=== PATIENT | female | born 1940 | race Two or more races ===

== ENCOUNTER 2025-07-12 03:17 | Inpatient (IN) | payer OTHER, SELFPAY ==
[2025-07-11 18:33] VITALS: BP 143/77
[2025-07-11 18:35] VITALS: BP 143/77
[2025-07-11 18:58] LABS: Hematocrit 31.1 % (37.0-47.0); Hemoglobin 10.7 g/dL (12.0-16.0); Mean Corp Hgb Conc. 34.4 g/dL (33.0-37.0); Mean Corpuscular Volume 85.9 fL (81.0-99.0); Nucleated Red Blood Cells % 0 %; Platelet Count 205 10^3/uL (130-400); Red Cell Dist. Width 12.6 % (11.5-14.5)
--- NOTE | 2025-07-11 18:58 | ED.GENMED ---
ED Provider Triage
<Jose Manuel Kay MD, Resident - Last Filed: 07/12/25 02:06>
-
Patient seen by provider in Triage?: Seen in Triage
History of Present Illness
<Jose Manuel Kay MD, Resident - Last Filed: 07/12/25 02:06>
General
Chief Complaint: Chest Pain
Source: patient
Exam Limitations: none
Time Seen by Provider: 07/11/25 18:52
History of Present Illness
History of Present Illness:
84 y/o F who is here with daughter at bedside and presents for sudden sharp constant chest pain that has progressively improved since its onset an hour ago. Started with numbness in the right arm since the morning, which gradually declined until
her sudden presentation an hour ago. Associated with shortness of breath, dizziness, nausea, diaphoresis. She has a history of multiple TIA most recently in 2023, hypertension, hyperlipidemia, hypothyroidism. No smoking, occasional alcohol use,
no diabetes. No fever, chills, vomiting, abdominal pain, acute neurological deficits.
Past History
<Jose Manuel Kay MD, Resident - Last Filed: 07/12/25 02:06>
Past History
ED Past Medical History: HTN, Hypercholesterolemia and Other (TIA)
Social History
Tobacco: Non-smoker
Alcohol: None
Drug: None
Living: with family
Review of Systems
<Jose Manuel Kay MD, Resident - Last Filed: 07/12/25 02:06>
Review of Systems
All Other Systems: ROS reviewed and negative except as documented in HPI and ROS
Phy Exam
<Jose Manuel Kay MD, Resident - Last Filed: 07/12/25 02:06>
General Physical Exam
General Presentation: well appearing and no apparent distress
General age: appears stated age
General Skin: warm and dry
General Habitus: elderly
General Mental: alert
Cardiovascular Exam
Cardiovascular Exam: regular rate/rhythm and no edema
Pulmonary Exam
Pulmonary Exam: lungs clear and no respiratory distress
Gastrointestinal Exam
Gastrointestinal Exam: normal bowel sounds, non tender, soft and non distended
Neurological Exam
Neurological Exam: alert, oriented x3, CN II-XII intact, no motor deficits, normal reflexs, no sensory deficits and speech normal
Musculoskeletal Exam
Musculoskeletal Exam: full ROM and no edema
Psychiatric Exam
Psychiatric Exam: normal mood/affect
Scores
<Jose Manuel Kay MD, Resident - Last Filed: 07/12/25 02:06>
Heart Score for Chest Pain Patients
STEMI patient?: No
History: Slightly or Non-Suspicious
ECG: Normal
Age: >/= 65 years
Risk Factors: 1 or 2 Risk Factors
Troponin: >1 - <3 x Normal Limit
Heart Score for Chest Pain Patients: 4
Heart Score Risk: 20.3% MACE over next 6 weeks
Course
<Jose Manuel Kay MD, Resident - Last Filed: 07/12/25 02:06>
Orders/Labs/Results
Orders:
Orders
07/11/25 18:38
Electrocardiogram (*1) Urgent
Reason for Study: Chest Pain
EKG- Treatment ONCE
07/11/25 18:49
Complete Blood Count/With Diff Urgent
Comprehensive Metabolic Panel Urgent
Troponin I Urgent
07/11/25 20:44
Aspirin 325 mg PO NOW STA
07/11/25 20:55
Electrocardiogram (*1) Urgent
Reason for Study: Chest Pain
EKG- Treatment ONCE
07/11/25 21:04
Diltiazem 125 mg/125 ml Nss [Cardizem] 125 mg in 125 ml IV NOW
Currently infusing. Continue current dose and titrate:: Yes
Titrate to keep:: Heart rate 80-100 bpm
Titrate by mg/hr:: 5 mg/hr
Frequency of titrations (minutes):: 15
Maximum dose in mg/hr:: 15
07/11/25 21:33
Troponin I Urgent
07/11/25 21:50
Electrocardiogram (*1) Urgent
Reason for Study: Chest Pain
07/11/25 22:14
CR Chest - 2 Views Urgent
Comment:
Reason For Exam: SOB, CP
07/11/25 22:17
D-Dimer Urgent
07/11/25 22:36
Nitroglycerin Sublingual [Nitrostat (Sublingual)] 0.4 mg SL [id number] PRN
07/11/25 22:42
Diphenhydramine [Benadryl] 50 mg IV NOW STA
Hydrocortisone Sod Succinate [Solu-Cortef] 200 mg IV NOW STA
07/12/25 00:35
CT Chest PE Study Urgent
Reason For Exam: SOB, CP, pos dimer
07/12/25 00:51
EKG- Treatment ONCE
07/12/25 01:43
PTT Urgent
Comment: Obtain baseline before beginning heparin infusion if not already collected
Heparin 3,400 units IV NOW STA
Nursing to Place Non Medication Order As Directed
Physician Order: PTT 6 hours after initial start of Heparin infusion
Above order entered?: Yes
07/12/25 01:45
Heparin 72838 Units/250 ml 25,000 units in 250 ml IV PER PROTOCOL
Weight to be used for heparin protocol in kilograms (kg):: 57.3
Protocol:: Cardiac Tx/Acute Coronary
PTT Goal Range to be used:: PTT 73 to 111 seconds
Order type:: Initial
INITIAL Infusion Dose (UNITS/KG/hr) & then follow protocol:: 12 units/kg/hr
Infusion Dose in UNITS/hr & then follow protocol (UNITS/hr):: 700
INFUSION RATE in mL/hr & then follow protocol (mL/hr):: 7
PTT less than or equal to 64 seconds:: Increase rate by 200 units/hr (+ 2 mL/hr)
PTT 64.1 to 72.9 seconds:: Increase rate by 100 units/hr (+ 1 mL/hr)
PTT 73 to 111 seconds:: Target Range. No change in rate.
PTT 111.1 to 130.9 seconds:: Decrease rate by 100 units/hr (- 1 mL/hr)
PTT 131 to 199.9 seconds:: HOLD for 1 hr. Then decrease rate by 200 units/hr (- 2 mL/hr)
PTT greater than or equal to 200 seconds:: HOLD for 2 hrs & Notify Provider. Then decrease by 200 units/hr (-
2 mL/hr)
Lab follow-up:: Each change, PTT q6h until 2 consecutive are therapeutic. Then PTT
daily.
07/12/25 02:30
Electrocardiogram (*1) Urgent
Reason for Study: Chest Pain
Troponin I Urgent
Abnormal Lab Results
07/11/25 07/11/25 07/11/25
18:49 21:33 22:17
WBC 4.6 L 10^3/uL
(4.8-10.8)
RBC 3.62 L 10^6/uL
(4.20-5.40)
Hgb 10.7 L g/dL
(12.0-16.0)
Hct 31.1 L %
(37.0-47.0)
D-Dimer 1.51 H ug/mlFEU
(0.00-0.50)
Chloride 109 H mmol/L
(98-107)
BUN 21 H mg/dl
(7-17)
Troponin I 0.035 H* ng/ml 0.688 H* D ng/ml
07/11/25 18:49
07/11/25 18:49
Vital Signs
Initial and Last Documented VS:
Initial Vital Signs
Temp Pulse Resp BP Pulse Ox
98.9 F 68 16 143/77 99
07/11/25 18:33 07/11/25 18:33 07/11/25 18:33 07/11/25 18:33 07/11/25 18:33
Last Documented Vital Signs
Temp Pulse Resp BP Pulse Ox
98.9 F 104 24 141/101 96
07/11/25 18:33 07/11/25 21:45 07/11/25 21:45 07/11/25 21:00 07/11/25 20:45
<Kenia Telles DO - Last Filed: 07/12/25 01:45>
Orders/Labs/Results
Orders:
Orders
07/11/25 18:38
Electrocardiogram (*1) Urgent
Reason for Study: Chest Pain
EKG- Treatment ONCE
07/11/25 18:49
Complete Blood Count/With Diff Urgent
Comprehensive Metabolic Panel Urgent
Troponin I Urgent
07/11/25 20:44
Aspirin 325 mg PO NOW STA
07/11/25 20:55
Electrocardiogram (*1) Urgent
Reason for Study: Chest Pain
EKG- Treatment ONCE
07/11/25 21:04
Diltiazem 125 mg/125 ml Nss [Cardizem] 125 mg in 125 ml IV NOW
Currently infusing. Continue current dose and titrate:: Yes
Titrate to keep:: Heart rate 80-100 bpm
Titrate by mg/hr:: 5 mg/hr
Frequency of titrations (minutes):: 15
Maximum dose in mg/hr:: 15
07/11/25 21:33
Troponin I Urgent
07/11/25 21:50
Electrocardiogram (*1) Urgent
Reason for Study: Chest Pain
07/11/25 22:14
CR Chest - 2 Views Urgent
Comment:
Reason For Exam: SOB, CP
07/11/25 22:17
D-Dimer Urgent
07/11/25 22:36
Nitroglycerin Sublingual [Nitrostat (Sublingual)] 0.4 mg SL [id number] PRN
07/11/25 22:42
Diphenhydramine [Benadryl] 50 mg IV NOW STA
Hydrocortisone Sod Succinate [Solu-Cortef] 200 mg IV NOW STA
07/12/25 00:35
CT Chest PE Study Urgent
Reason For Exam: SOB, CP, pos dimer
07/12/25 00:51
EKG- Treatment ONCE
07/12/25 01:43
PTT Urgent
Comment: Obtain baseline before beginning heparin infusion if not already collected
Heparin 3,400 units IV NOW STA
Nursing to Place Non Medication Order As Directed
Physician Order: PTT 6 hours after initial start of Heparin infusion
Above order entered?: Yes
07/12/25 01:45
Heparin [id number] Units/250 ml 25,000 units in 250 ml IV PER PROTOCOL
Weight to be used for heparin protocol in kilograms (kg):: 57.3
Protocol:: Cardiac Tx/Acute Coronary
PTT Goal Range to be used:: PTT 73 to 111 seconds
Order type:: Initial
INITIAL Infusion Dose (UNITS/KG/hr) & then follow protocol:: 12 units/kg/hr
Infusion Dose in UNITS/hr & then follow protocol (UNITS/hr):: 700
INFUSION RATE in mL/hr & then follow protocol (mL/hr):: 7
PTT less than or equal to 64 seconds:: Increase rate by 200 units/hr (+ 2 mL/hr)
PTT 64.1 to 72.9 seconds:: Increase rate by 100 units/hr (+ 1 mL/hr)
PTT 73 to 111 seconds:: Target Range. No change in rate.
PTT 111.1 to 130.9 seconds:: Decrease rate by 100 units/hr (- 1 mL/hr)
PTT 131 to 199.9 seconds:: HOLD for 1 hr. Then decrease rate by 200 units/hr (- 2 mL/hr)
PTT greater than or equal to 200 seconds:: HOLD for 2 hrs & Notify Provider. Then decrease by 200 units/hr (-
2 mL/hr)
Lab follow-up:: Each change, PTT q6h until 2 consecutive are therapeutic. Then PTT
daily.
07/12/25 02:30
Electrocardiogram (*1) Urgent
Reason for Study: Chest Pain
Troponin I Urgent
Abnormal Lab Results
07/11/25 07/11/25 07/11/25
18:49 21:33 22:17
WBC 4.6 L 10^3/uL
(4.8-10.8)
RBC 3.62 L 10^6/uL
(4.20-5.40)
Hgb 10.7 L g/dL
(12.0-16.0)
Hct 31.1 L %
(37.0-47.0)
D-Dimer 1.51 H ug/mlFEU
(0.00-0.50)
Chloride 109 H mmol/L
(98-107)
BUN 21 H mg/dl
(7-17)
Troponin I 0.035 H* ng/ml 0.688 H* D ng/ml
07/11/25 18:49
07/11/25 18:49
Vital Signs
Initial and Last Documented VS:
Initial Vital Signs
Temp Pulse Resp BP Pulse Ox
98.9 F 68 16 143/77 99
07/11/25 18:33 07/11/25 18:33 07/11/25 18:33 07/11/25 18:33 07/11/25 18:33
Last Documented Vital Signs
Temp Pulse Resp BP Pulse Ox
98.9 F 104 24 141/101 96
07/11/25 18:33 07/11/25 21:45 07/11/25 21:45 07/11/25 21:00 07/11/25 20:45
<Jose Manuel Kay MD, Resident - Last Filed: 07/12/25 02:06>
MDM/Problems Addressed
Differential Diagnosis Includes:
STEMI, NSTEMI, unstable angina, stable angina, pulmonary embolism, costochondritis, GERD
MDM/Problems Addressed:
- CBC shows hgb of 10.7
- CMP unremarkable
- Trop is 0.035, repeat troponin is .688
- Initial EKG is normal, and repeat EKG shows atrial fibrillation. cardizem drip started.
- CT for Pulmonary embolism is negative.
- *She states she had flushing and wasn't able to breath last time she had a injected dye with contrast 40 years ago.*
- D dimer elevated at 1.5
- Plan is to admit patient and start on heparin drip. Diltiazem d/c'd as patient is back in sinus rhythm.
<Jose Manuel Kay MD, Resident - Last Filed: 07/12/25 02:06>
*Pulse Oximetry
SaO2: 99
Oxygen Mode of Delivery: Room air
Patient hypoxic: no
*Critical Care Note
Total Time (30-74mins, 75-104mins- exclusive of procedures): Not Applicable
<Kenia Telles, DO - Last Filed: 07/12/25 01:45>
*EKG
Interpreted by ED Provider?: Yes
EKG Intrepretation Date: 07/11/25
Interpretation: normal
Comparison EKG: no comparison EKG present
Heart Rate: 72
Rate: normal
Rhythm: sinus
[place]: normal axis
Interval: normal interval
QRS Pattern: normal QRS
Ischemia: no ischemia
ED Attending Note
<Jose Manuel Kay MD, Resident - Last Filed: 07/12/25 02:06>
-
Portions of this chart may have been created with voice recognition software.� Occasional wrong word or��sound alike� substitutions may have occurred due to the inherent limitations of voice recognition software.
<Kenia Telles DO - Last Filed: 07/12/25 01:45>
ED Attending Note
Patient seen and examined by attending physician: Yes
I performed the substantive portion of visit, reviewed & personally made and approve the management plan that is documented in note by myself or ESPERANZA.: Yes
I performed a history and physical exam of patient and discussed management with resident, I reviewed resident's note and agree with documented findings and plan of care.: Yes
ED Attending Note:
84-year-old female with history of hypertension, hyperlipidemia, TIA presenting to the emergency department for chest pain. Patient reports about an hour prior to arrival she had sudden onset of sharp chest pain. The pain has since been
intermittent. Notes associated shortness of breath, with dizziness and diaphoresis. Patient with daughter at bedside. Denies any known prior history of cardiac pathology. Denies any history of PE. Does note that she is on maintenance hormone
therapy after breast cancer diagnosis about 5 years ago. Reports that the pain is still present, however now feels in her back. Denies cough or fever.
Vital signs are normal. On exam patient is resting comfortably, no acute distress. EKG obtained immediately upon arrival given patient's symptoms. EKG is sinus rhythm without acute evidence of ischemia. Patient with concerning story for ACS with
some risk factors, so plan for laboratory analysis including troponin. Patient did receive aspirin prior to arrival. Will continue to closely monitor.
21:00 - Initial troponin is elevated at 0.035. Patient's heart rate is not fluctuating, tachycardic. Repeat EKG confirms new onset atrial flutter. This could be contributing to patient symptoms. However PE is also consideration given hormonal
therapy, dyspnea, tachycardia. Will obtain a CT of the chest. Starting patient on diltiazem drip for heart rate control
20:50 -patient went to CT, however noted an allergic reaction in the past IV contrast dye, however was 40 years ago. Will pretreat, with dimer being positive and second troponin now 0.6. Repeat EKG continues to show atrial flutter. In discussion
with cardiology, recommending heparin drip.
01:40 -CT of the chest without evidence of PE. No aortic dissection. Plan for heparin drip and admission. Patient has converted back to sinus rhythm so holding diltiazem
Discharge Plan
Departure
Patient Disposition: Admit
Date of Disposition: 07/12/25
Time of Disposition: 01:47
Presentation/result/management discussed w/ accepting MD/DO: Hospitalist
Patient with high blood pressure during this ER visit?: No
Condition: Fair
Discharge Problem:
Chest pain, Atrial flutter
Prescriptions:
No Action
losartan 50 MG tablet
50 mg PO DAILY
aspirin [Aspir-Low] 81 MG tablet,delayed release (DR/EC)
81 mg PO DAILY
levothyroxine 100 MCG tablet
100 mcg PO DAILY
ibuprofen [Advil] 200 MG tablet
200 mg PO PRN PRN (Reason: pain)
ssnomogqypob-qoui-nmmor acid [Centrum] 1 EACH tablet
1 tab PO DAILY
Calcium
1 tab PO DAILY
Patient Comments:
does not know mg dose
Simvastatin
1 tab PO DAILY
Patient Comments:
does not know mg dose
meloxicam 7.5 MG tablet
7.5 mg PO DAILY Qty: 30 0RF
gabapentin 100 MG capsule
100 mg PO HS Qty: 30 0RF
Referrals:
UNKNOWN,NO INTERVIEW [Family Provider]
Interventions
Interventions:
*Risk Screen - Suicide Last Done: 07/11/25 18:33
*General Assessment Last Done: 07/11/25 18:33
*Neglect/Abuse Screening Last Done: 07/11/25 18:33
*ED COVID-19 Vaccine History Last Done: 07/11/25 18:58
*ED Influenza Vaccine History Last Done: 07/11/25 18:58
ED- Cardiac Assessment Last Done: 07/11/25 18:58
Discharge Date and Time
Print Language: ROMANIAN
[2025-07-11 19:00] VITALS: BP 134/73
[2025-07-11 19:25] LABS: ALT (SGPT) 11 U/L (0-35); AST (SGOT) 18 U/L (14-36); Albumin 4.2 g/dl (3.5-5.0); Alkaline Phosphatase 61 U/L (38-126); Blood Urea Nitrogen 21 mg/dl (7-17); Calcium 9.1 mg/dl (8.4-10.2); Carbon Dioxide 23 mmol/L (22-30); Chloride 109 mmol/L (98-107); Glucose 87 mg/dl (70-99); Potassium 4.7 mmol/L (3.5-5.1); Sodium 139 mmol/L (135-145); Total Protein 7.1 g/dl (6.3-8.2); eGFR 55.55
[2025-07-11 19:45] LABS: Troponin I 0.035 ng/ml
[2025-07-11 20:00] VITALS: BP 132/67
[2025-07-11 21:00] VITALS: BP 141/101
[2025-07-11] MEDS: CARDIZEM 125 IV (21:12)
[2025-07-11 21:48] VITALS: BMI 24.7
[2025-07-11 22:10] VITALS: BP 148/87
[2025-07-11 22:25] LABS: Troponin I 0.688 ng/ml
[2025-07-11 22:37] LABS: D-Dimer 1.51 ug/mlFEU (0.00-0.50)
[2025-07-11] MEDS: BENADRYL 50 MG IV (23:28)
[2025-07-11] MEDS: SOLU-CORTEF 200 MG IV (23:34)
[2025-07-12] VITALS (11 sets, daily range): BP systolic 97–128; BP diastolic 56–93; BMI 22.6
[2025-07-12] MEDS: HEPARIN 3400 UNITS IV (02:18)
[2025-07-12] MEDS: HEPARIN 25000 UNITS/250 ML IV (02:18)
[2025-07-12 02:54] LABS: APTT 35.7 Sec (23.4-35.0)
--- NOTE | 2025-07-12 03:05 | HPS.HSE ---
Family Physician
-
Family Physician: NO INTERVIEW UNKNOWN
Chief Complaint
-
Chest pain
History of Present Illness
Patient is an 84y F with PMH significant for prior TIAs, breast cancer on hormonal therapy and hypertension who presents to ED complaining of chest pain. History obtained from patient and her family at the bedside. Patient was feeling fairly
well until about 5PM this evening when she developed sudden onset of chest pain and upper back pain. Pain started shortly after the evening meal. Pain was associated with shortness of breath, nausea and diaphoresis. Patient denies any prior
history of similar symptoms. She presented to the ED for further evaluation and treatment. She was noted to go into A-Flutter in the ED with variable rates. She was started on Cardizem and given SL NTG and her discomfort improved. She entered a
NSR and the Cardizem has since been discontinued.
At the time of my examination, patient is resting comfortably. She denies any chest pain, back pain or dyspnea at present.
Patient denies any prior h/o A-Fib, Flutter, etc.
Daughter does note that patient has had a few episodes of lightheadedness and syncope / collapse over the past few months. There has been no known explanation for these events.
Patient and her daughter are currently visiting from [place].
Medical History
Past Medical History
Past Medical History: Reports Other
Additional Past Medical History:
ASCVD / Prior TIAs
Hypertension
Dyslipidemia
Breast Cancer s/p Lumpectomy and XRT
Hypothyroidism
Past Surgical History: Reports Other
Additional Past Surgical History:
Right Lumpectomy
Cholecystectomy
Appendectomy
Social History
Tobacco: Non-smoker
Alcohol: None
Drug: None
Family History
Family History: Not pertinent
Allergies / Home Medications
Allergies reflects when Allergies were last updated in [facility].
Home Medications with original date entered in [facility]
Allergy/Medication List:
Allergies
Allergy/AdvReac Type Severity Reaction Status Date / Time
Penicillins Allergy Unknown Verified 07/11/25 18:38
Sulfa (Sulfonamide Allergy Unknown Verified 07/11/25 18:38
Antibiotics)
Home Medications
levothyroxine 100 mcg tablet 100 mcg PO DAILY 11/24/18
acetaminophen 500 mg tablet 500 mg PO Q6H PRN pain 07/12/25
irbesartan 150 mg tablet 150 mg PO DAILY 07/12/25
letrozole 2.5 mg tablet (Femara) 2.5 mg PO DAILY 07/12/25
Patient also takes a statin daily, but unknown which one / what dose.
Review of Systems
-
History Source: Patient and Family
A 12 point ROS was completed and negative except as noted: Yes
Constitutional: Reports Fatigue; Denies Fever or Chills
Respiratory: Reports Trouble Breathing; Denies Cough
Cardiac: Reports Chest Pain and Diaphoresis; Denies Palpitations or Syncope
Abdomen/GI: Reports Nausea; Denies Abdominal Pain, Vomiting or Diarrhea
: Denies Dysuria or Flank Pain
Musculoskeletal: Reports Other (Back pain); Denies Joint Pain
Neurological: Reports Dizzy; Denies Headache
Psych: Denies Depression or Anxiety
Physical Exam
Vital Signs
Vital Signs
Temp Pulse Resp BP Pulse Ox
98.9 F 104 24 141/101 96
07/11/25 18:33 07/11/25 21:45 07/11/25 21:45 07/11/25 21:00 07/11/25 20:45
Physical Exam
General: Other (84y F resting comfortably in no acute distress.)
HEENT: Moist mucous membranes and PERRLA
Respiratory: Clear; No Wheezes, Rales or Rhonchi
Cardiac: S1/S2 and Regular Rhythm; No Murmur
GI: Soft, Non Tender, Non Distended and Normal Bowel Sounds
Musculoskeletal: No Clubbing, No Cyanosis and No Edema
Neuro: AO x 3
Laboratory Results
-
07/11/25 18:49
07/11/25 18:49
Laboratory Results
APTT 35.7 Sec (23.4-35.0) H 07/12/25 02:15
Total Bilirubin 0.3 mg/dl (0.2-1.3) 07/11/25 18:49
AST 18 U/L (14-36) 07/11/25 18:49
ALT 11 U/L (0-35) 07/11/25 18:49
Alkaline Phosphatase 61 U/L (38-126) 07/11/25 18:49
Troponin I 0.688 ng/ml H* D 07/11/25 21:33
Impression/Plan
-
A/P: Patient is an 84y F with PMH significant for prior TIAs, hypertension and breast cancer on hormonal therapy who presents to ED complaining of chest pain.
ACS
ASCVD
- Admit to IVU for further evaluation and treatment.
- Patient presents with chest pain, back pain, diaphoresis and nausea.
- Likely due to rapid A-Flutter - ? underlying coronary disease exacerbated by tachyarrhythmia.
- Troponin: 0.035 to 0.688. Continue to follow to peak.
- ASA daily, Statin. Continue IV heparin infusion.
- Follow for any new / worsening symptoms.
- Cardiology evaluation for additional recommendations / possible ischemic evaluation.
Atrial Flutter
- A-Flutter with variable block in the ED on tele and EKG - now back in NSR and off of diltiazem.
- Monitor on telemetry for recurrent arrhythmia.
- Metoprolol BID with holding parameters.
- IV heparin as noted above.
- Check TFTs. Check Echo.
- Cardiology evaluation as noted above.
Normocytic Anemia
- ? acuity / etiology / etc.
- Check iron studies, etc.
- Follow H&H for any changes / monitor for any evidence of bleeding.
Benign Hypertension
- Stable. Hold ARB acutely following CTA and pending possible cardiac cath.
- Added metoprolol as noted above.
- Adjust med regimen as needed for adequate BP control.
Hypothyroidism
- Continue current T4 supplementation.
- Update TFTs.
Breast Cancer
- s/p lumpectomy and XRT. Now on hormonal therapy.
- Hold Femara acutely pending completion of CV evaluation.
DVT Prophylaxis: On IV Heparin
Code Status: DNR
[2025-07-12 03:33] LABS: Troponin I 3.690 ng/ml
[2025-07-12] MEDS: SYNTHROID 100 MCG PO (05:29)
[2025-07-12 06:29] LABS: Iron 93 ug/dl (37-170)
[2025-07-12 06:31] LABS: Blood Urea Nitrogen 24 mg/dl (7-17); Calcium 8.9 mg/dl (8.4-10.2); Carbon Dioxide 17 mmol/L (22-30); Chloride 112 mmol/L (98-107); Estimated Creatinine Clearance 30 ml/min; Glucose 116 mg/dl (70-99); HDL Cholesterol 86 mg/dl; LDL Cholesterol, Calculated 186 mg/dl; Potassium 4.7 mmol/L (3.5-5.1); Sodium 140 mmol/L (135-145); Very Low Density Lipoprotein 7 mg/dl (0-30); eGFR > 60.00
[2025-07-12 06:39] LABS: Total Iron Binding Capacity 250 ug/dl (265-497)
--- NOTE | 2025-07-12 06:39 | PTCARENOTE ---
Pt admitted to room [address] new A flutter and chest pain. Pt denies any pain and NSR on monitor. VSS Pt oriented to the room.
[2025-07-12 07:05] LABS: Ferritin 68.2 ng/ml (11.1-264.0)
[2025-07-12 07:20] LABS: Vitamin B12 935 pg/ml (239-931)
[2025-07-12] MEDS: LOW STRENGTH ASPIRIN 81 MG PO (07:55)
[2025-07-12] MEDS: TOPROL XL 25 MG PO ×2 (07:55→19:42)
--- NOTE | 2025-07-12 08:13 | W.PN.HOSP.TC ---
Today's Communication/Plan
-
For cardiac cath tomorrow.
Assessment / Plan
Assessment / Plan
Impression:
Patient is an 84y F with PMH significant for prior TIAs, breast cancer on hormonal therapy and hypertension who presents to ED complaining of chest pain. History obtained from patient and her family at the bedside. Patient was feeling fairly
well until about 5PM this evening when she developed sudden onset of chest pain and upper back pain. Pain started shortly after the evening meal. Pain was associated with shortness of breath, nausea and diaphoresis. Patient denies any prior
history of similar symptoms. She presented to the ED for further evaluation and treatment. She was noted to go into A-Flutter in the ED with variable rates. She was started on Cardizem and given SL NTG and her discomfort improved. She entered a
NSR and the Cardizem has since been discontinued.
Troponin elevated, started on heparin drip and admitted to IVU, cardiology consulted.
Assessment/plan:
NSTEMI
- Admitted to IVU for further evaluation and treatment.
- Patient presents with chest pain, back pain, diaphoresis and nausea.
- Likely due to rapid A-Flutter - ? underlying coronary disease exacerbated by tachyarrhythmia.
- Troponin: 0.035 to 0.688 ---> 3.690
- ASA daily, Statin. Continue IV heparin infusion.
Patient currently chest pain-free
Discussed with cardiology for cardiac cath tomorrow
Patient is allergic to iodine contrast, will need preparation before cardiac cath
New onset Atrial Flutter
- A-Flutter with variable block in the ED on tele and EKG - now back in NSR and off of diltiazem.
- Monitor on telemetry for recurrent arrhythmia.
- Metoprolol BID with holding parameters.
- IV heparin as noted above.
-TSH less than 0.02, free T4 2.58
-Patient stayed in sinus rhythm
Normocytic Anemia
- normal iron studies.
- Follow H&H for any changes / monitor for any evidence of bleeding.
Benign Hypertension
- Stable. Hold ARB acutely following CTA and pending possible cardiac cath.
- Added metoprolol as noted above.
- Adjust med regimen as needed for adequate BP control.
Hypothyroidism
- Continue current T4 supplementation.
- TSH less than 0.02, free T4 2.58
- Lower Synthroid dose to 100 mcg daily
Breast Cancer
- s/p lumpectomy and XRT. Now on hormonal therapy.
- Hold Femara acutely pending completion of CV evaluation.
CODE STATUS: DNR
DVT prophylaxis: Heparin
Diet: cardiac diet- NPO after midnight.
Family communication: Discussed with family at bedside.
Disposition: For cardiac cath tomorrow.
Total time spent on today's encounter was 65 minutes which included time spent in counseling the patient/family regarding diagnosis and treatment plan as listed above, goals of care, and symptom management. Case was discussed with nursing staff,
specialists, and care coordinators/case management. All labs and imaging personally reviewed by me. Remainder the time spent in detailed review of previous records, lab data, imaging, and other medical provider documentation.
Anticipated Discharge: 24 - 48 hours
Subjective/Interval History
-
Date of Service: July 12, 2025
Patient seen and examined at bedside, denies any chest pain or shortness of breath, no abdominal pain, no nausea, no vomiting, no diarrhea or constipation.
Discussed with family at bedside.
Objective Data
-
Labs:
Laboratory Results
07/12/25 07/12/25 07/12/25
02:15 05:05 08:30
APTT 35.7 H Pending
Sodium 140
Potassium 4.7
Chloride 112 H
Carbon Dioxide 17 L
BUN 24 H
Creatinine 0.9
Glucose 116 H
Calcium 8.9
Vital Signs:
Vital Signs
Temp Pulse Resp BP Pulse Ox
97.9 F 66 16 113/76 96
07/12/25 07:24 07/12/25 07:45 07/12/25 07:24 07/12/25 07:24 07/12/25 07:24
Physical Exam
-
General: Well Developed, Well Nourished, No Apparent Distress and Comfortable
HEENT: Normocephalic, Atraumatic, Moist Mucous Membranes, No Ptosis, PERRLA and Nose Appears Normal
Respiratory: Clear to Auscultation and Non Labored Respirations
Cardiac: Regular Rhythm and S1/S2
Breast: Deferred by me
GI: Soft, Nontender, Nondistended and Normal Bowel Sounds
Genito-urinary: No Costovertebral Tender
Musculoskeletal: No Clubbing, No Cyanosis and No Edema
Skin: Warm
Neuro: Awake, Alert, Oriented, AO x 3 and No Motor Deficits
Psych: Calm
Data Reviewed
-
Diagnostic Radiology: Image personally visualized and interpreted and Report Reviewed by me
CT Scan: Image personally visualized and interpreted and Report Reviewed by me
Ultrasound: Image personally visualized and interpreted and Report Reviewed by me
MRI: Image personally visualized and interpreted and Report Reviewed by me
Medical Tests (Nuc Med, Echo etc): Image personally visualized and interpreted and Report Reviewed by me
Labs: Labs Reviewed by me
Old Records: Reviewed
[2025-07-12 09:17] LABS: Troponin I 7.510 ng/ml
[2025-07-12 09:26] LABS: APTT > 200 Sec (23.4-35.0)
[2025-07-12 09:45] LABS: Folate 14.1 ng/ml (2.76-20)
--- NOTE | 2025-07-12 10:46 | CON.CAR ---
Consultation
Consultation Request
Date/Time Consultation Requested: July 12, 2025
Date/Time Consultation Performed: July 12, 2025
Requesting Provider: Hospitalist
Performing Provider: Hospitalist
Reason for Consultation: Non-ST segment elevation myocardial infarction and newly dx atrial flutter
Medical History
-
Chief Complaint: Chest pain
History of Present Illness:
She was brought to the emergency department by her family on July 10, 2025 after experiencing sudden onset chest pain and upper back pain which started shortly after her evening meal. There was associated shortness of breath nausea as well as
diaphoresis. She did not note any heart racing or palpitation sensations.
Evaluation in the emergency department found her to be in atrial flutter with variable but mostly controlled ventricular rates. She was started on intravenous Cardizem and also given sublingual nitroglycerin. While receiving intravenous Cardizem
she converted to sinus rhythm and all of her symptoms resolved. She no longer had chest pain or back pain. No longer had dyspnea.
Her daughter notes that she has had a few episodes of lightheadedness and near syncope over the past few months.
Of note there is a history of prior TIAs as well as hypertension.
ECG in the emergency department finds atrial flutter, atypical and average ventricular rate of 92 bpm without evidence of prior WI or obvious ST or T abnormalities
Initial troponin value 0.035, then 0.688, then at 66 bpm 3.690, then 7.51
ECG from this morning finds sinus rhythm with high lateral T wave abnormalities now evident.
She is currently in sinus rhythm and currently symptom-free.
Cardiology consultation is requested
Additional evaluation has included
D-dimer which is elevated at 1.51
CTA of the chest which finds no evidence for pulmonary embolism
Past medical history:
Reportedly TIAs
Hypertension
Breast cancer
Social History
Alcohol: None
Drug: None
Living: With Family
Family History
Family History: Reviewed & Not Pertinent
Allergies / Home Medications
Allergy/AdvReac Type Severity Reaction Status Date / Time
Penicillins Allergy Unknown Verified 07/11/25 18:38
Sulfa (Sulfonamide Allergy Unknown Verified 07/11/25 18:38
Antibiotics)
�Medication �Instructions �Recorded �Confirmed �Type
levothyroxine 100 mcg tablet 125 mcg PO DAILY 11/24/18 07/12/25 History
B-12 Plus 1,200 mcg QDAY 07/12/25 07/12/25 History
acetaminophen 500 mg tablet 500 mg PO Q6H PRN pain 07/12/25 07/12/25 History
aspirin 81 mg tablet 81 mg PO DAILY 07/12/25 07/12/25 History
irbesartan 150 mg tablet 150 mg PO DAILY 07/12/25 07/12/25 History
letrozole 2.5 mg tablet (Femara) 2.5 mg PO DAILY 07/12/25 07/12/25 History
rosuvastatin 10 mg tablet (Crestor) 10 mg PO DAILY 07/12/25 07/12/25 History
Review of Systems
-
History Source: Patient
All other systems: Negative unless noted
Constitutional: No Symptoms
EENT: No Symptoms
Respiratory: Trouble Breathing (On presentation, now resolved)
Cardiac: Chest Pain (On presentation, now resolved)
Abdomen/GI: No Symptoms
: No Symptoms
Musculoskeletal: No Symptoms
Skin: No Symptoms
Neurological: No Symptoms
Hematologic/Lymphatic: No Symptoms
Physical Exam
Vital Signs
Temp Pulse Resp BP Pulse Ox
97.9 F 66 16 113/76 96
07/12/25 07:24 07/12/25 07:45 07/12/25 07:24 07/12/25 07:24 07/12/25 07:24
Lab Results
07/11/25 18:49
07/12/25 05:05
Troponin I 7.510 ng/ml H* D 07/12/25 08:38
Physical Exam
General: Well Developed, Well Nourished, No Apparent Distress and Comfortable
HEENT: Normocephalic, Anicteric and Moist Mucous Membranes
Respiratory: Non Labored Respirations
Cardiac: S1/S2, Regular Rhythm and Murmur (Grade 1/6 apical holosystolic murmur no rubs)
Breast: Deferred by me
GI: Soft, Non Tender, Non Distended and Normal Bowel Sounds
Rectal: Deferred by Provider
Musculoskeletal: No Clubbing, No Cyanosis and No Edema
Skin: Warm and Dry
Neuro: Awake, Alert, Oriented and AO x 3
Psych: Calm
Impression / Plan
-
Impression/plan:
Non-ST segment elevation myocardial infarction
Now symptom-free
Seems to have been precipitated/exacerbated by atrial flutter with mildly rapid rates
Plan for coronary angiography tomorrow
Continue heparin
Continue aspirin 81 mg daily
Continue Toprol-XL 25 mg twice daily
Initiate statin, Lipitor 40 mg daily
Trend troponin
Check echo
Atypical atrial flutter
Newly diagnosed and spontaneously converted to sinus rhythm while on intravenous Cardizem
With conversion to sinus rhythm, anginal symptoms resolved
She is now on metoprolol XL 25 mg twice daily to assist with rate control should she develop atrial flutter again
Given that she was symptomatic and had non-ST segment elevation myocardial infarction with her arrhythmia, we will also plan for rhythm control
Will initiate amiodarone 200 mg twice daily for a more acute rhythm control strategy
Longer-term rhythm control strategy can be discussed down the road
Maintain IV heparin with eventual switch to direct oral anticoagulant
Check echocardiogram
Essential hypertension
Had been on a irbesartan as an outpatient but now blood pressure is at goal on Toprol-XL, continue Toprol-XL 25 mg twice daily
Dyslipidemia
Fasting lipid profile finds LDL 186
Will initiate Lipitor 40 mg daily
Discussed with patient as well as multiple family members at the bedside. All of their questions answered. They are in agreement with the plan as outlined.
Total time spent today was 78 minutes in preparing to see the patient, seeing the patient and coordination of care. This included review of recent laboratory evaluations, cardiact testing, imaging studies, primary care rtecords, specialty
consultations, hospital records, as well as personally interviewing and examining the patient, which included discussion of their tests, review/ordering medications, and communicating with other healthcare professionals and also treatment planning
as well as counseling.
Total time does not include separately billed tests performed on this date of service.
Data Reviewed
-
EKG: Tracing Personally Visualized and interpreted
Radiology: Report Reviewed by me
CT Scan: Report Reviewed by me
Labs: Labs Reviewed by me, Discussed with Patient and Discussed with Family
[2025-07-12] MEDS: FEMARA 2.5 MG PO (12:18)
[2025-07-12] MEDS: PROTONIX 40 MG PO (12:18)
--- NOTE | 2025-07-12 13:28 | PTCARENOTE ---
Pt received this am with no c/;o of any chest pain or sob. Room air sat 97%. SR, rate in the 70's. Heparin infusing as ordered.
[2025-07-12 15:03] LABS: Troponin I 10.200 ng/ml
[2025-07-12] MEDS: LIPITOR 40 MG PO (17:07)
[2025-07-12 18:13] LABS: APTT 33.5 Sec (23.4-35.0)
--- NOTE | 2025-07-12 20:23 | PTCARENOTE ---
Pt rec'd at change of shift in bed with daughter at bedside. No c/o cp or sob. Made aware of npo status after mn for cath in am. Heparin drip infusing at 7 ml/hr. next ptt due at 0030.
[2025-07-12] MEDS: DELTASONE 50 MG PO (21:23)
[2025-07-13] VITALS (19 sets, daily range): BP systolic 87–117; BP diastolic 52–74; BMI 23.2
[2025-07-13 00:49] LABS: APTT 173.1 Sec (23.4-35.0)
[2025-07-13 01:01] LABS: Troponin I 8.480 ng/ml
[2025-07-13] MEDS: SYNTHROID 100 MCG PO (05:00)
[2025-07-13] MEDS: DELTASONE 50 MG PO ×2 (05:00→11:41)
--- NOTE | 2025-07-13 09:09 | PTCARENOTE ---
Received patient this morning resting in bed, her daughter at the bedside. Patient is NPO x meds, IV heparin infusing at 500 units/hr. Denies any pain or sob, for cardiac cath today.
[2025-07-13] MEDS: PROTONIX 40 MG PO (09:29)
[2025-07-13] MEDS: LOW STRENGTH ASPIRIN 81 MG PO (09:30)
[2025-07-13] MEDS: FEMARA 2.5 MG PO (09:30)
[2025-07-13] MEDS: TOPROL XL 25 MG PO (09:32)
[2025-07-13 09:39] LABS: APTT 96.9 Sec (23.4-35.0)
[2025-07-13 10:02] LABS: Platelet Count 255 10^3/uL (130-400)
[2025-07-13 10:03] LABS: Hematocrit 37.2 % (37.0-47.0); Hemoglobin 12.5 g/dL (12.0-16.0); Mean Corp Hgb Conc. 33.6 g/dL (33.0-37.0); Mean Corpuscular Volume 88.2 fL (81.0-99.0); Red Cell Dist. Width 12.9 % (11.5-14.5)
[2025-07-13 10:05] LABS: Troponin I 4.040 ng/ml
[2025-07-13 10:27] LABS: Blood Urea Nitrogen 33 mg/dl (7-17); Calcium 8.9 mg/dl (8.4-10.2); Carbon Dioxide 21 mmol/L (22-30); Chloride 109 mmol/L (98-107); Estimated Creatinine Clearance 27 ml/min; Glucose 134 mg/dl (70-99); Potassium 5.0 mmol/L (3.5-5.1); Sodium 138 mmol/L (135-145); eGFR 55.55
--- NOTE | 2025-07-13 11:23 | CM ---
Addendum entered by Emma Kilgore RN 07/13/25 11:46:
I spoke to Gemma at [facility] and she will be in to see the patient
Original Note:
Chart reviewed. Patient is independent of ADLS, currently visiting her sister patient is from [place] and is her with her daughter until September 09, staying with at her sisters in a 1 [address], 0 SABINE, 0 DME. Patient with no health insurance benefits.
I will notify [facility]. Plan is for the patient to return to her sisters house. CM to follow
--- NOTE | 2025-07-13 12:26 | PTCARENOTE ---
Patient seen by Dr. Torres, multiple family members in the room. Given pre medication of prednisone PO, patient taken to the laborer demolition, Dr. Dupree accompanying the patient, [employer] [employer] notified.
[2025-07-13 13:54] LABS: ACT-LR - POC 308 Seconds (116-155)
[2025-07-13 14:14] LABS: ACT-LR - POC 303 Seconds (116-155)
[2025-07-13 14:34] LABS: ACT-LR - POC 340 Seconds (116-155)
--- NOTE | 2025-07-13 14:34 | ITS.CL.CATH ---
[facility] - Catheterization
Cardiac Catheterization
Procedure Report:
LEFT HEART CATH AND CORONARY INTERVENTION
Date of Procedure: July 13, 2025
Referring: Dr. Eric Rivas
PROCEDURES:
1. Left heart catheterization with coronary single-plane left ventriculography
2. Successful stenting of the mid LAD with placement of a 2.5 x 12 mm [place] stent that was implanted with a 2.5 mm noncompliant balloon following IVUS imaging
INDICATION: This is an 84-year-old female who was admitted to [facility] with new onset atrial flutter with a rapid ventricular response and associated substernal chest pressure. She was admitted and her troponin subsequently became
modestly elevated rising to 10.2 ng/mL. She is now referred for coronary angiography.
ACCESS: Right radial artery, 6 Kyrgyz sheath. Arterial access was transition to right common femoral artery as cannulation of the left main for coronary intervention proved quite difficult. Ultrasound guidance was utilized and a 6 Kyrgyz sheath
was placed in the right common femoral artery
HEMODYNAMICS (mmHg):
AO (s/d, m) : 115/62
LV (s/d) : 112/7
LVEDP : 20
CORONARY FINDINGS
Dominance: Right
LEFT MAIN: Short and unobstructed
LEFT ANTERIOR DESCENDING: The LAD arises normally from the left main and runs in the anterior interventricular groove. There is a somewhat hazy 50% stenosis in the LAD just beyond the first septal aviation project engineer with the remainder of the vessel having
only minor luminal irregularities.
CIRCUMFLEX: The circumflex is a medium caliber nondominant vessel giving rise to 2 medium caliber obtuse marginal branches.
RIGHT CORONARY: The right coronary artery is a large-caliber dominant vessel with only minor irregularities
VENTRICULOGRAPHY: Left ventriculography is performed in an CHOW[place]URY projection. The digital single-plane left ventricular ejection fraction is estimated at 50% with anterolateral and mild apical wall hypokinesis
ANGIOPLASTY PROCEDURE DETAIL: Upon review of the diagnostic catheterization films and clinical history, the decision was made to proceed with percutaneous revascularization of the moderate mid LAD hazy plaque. The troponin of 10.2 ng/mL and
regional wall motion abnormality noted on ventriculography were concerning for a ruptured plaque with reperfusion and did not feel comfortable not treating the mid LAD stenosis as such. Intravenous heparin was administered and the ACT was monitored
throughout the procedure. The origin of the left main proved very difficult to cannulate from the right radial approach and ultrasound guidance was utilized to gain access in the right common femoral artery with placement of a 6 Kyrgyz sheath. The
left main was then easily cannulated using a XB 3.0 6 Fr guide. A BMW guidewire was advanced with a moderate degree of difficulty into the LAD as the guide catheter preferentially dove into the circumflex. Primary stenting was performed with
placement of a 2.5 x 12 mm [place] stent that was implanted at nominal pressures. Intravascular ultrasound was then performed and the stent appeared well-approximated and adequately sized to the vessel diameter. The stent was postdilated with a 2.5
mm noncompliant balloon to high pressures with a nice angiographic result
SEDATION: 90 minutes of procedural sedation was utilized. An independent medical data analyst was present to assist with and help manage the patient's level of consciousness and physiologic status
RADIATION SUMMARY: Fluoro Time (min): 19.9, Dose (mGy): 358, DAP (Gy.cm2) : 22.8
CONCLUSIONS
1. Successful stenting of moderate stenosis of the mid LAD. The angiographic appearance was somewhat hazy and troponin elevated to 10.2 ng/mL. The mid LAD was stented with a 2.5 x 12 mm Brandon stent that was postdilated with a 2.5 mm noncompliant
balloon
RECOMMENDATIONS
1. Patient will receive aspirin, Plavix, and Eliquis (2.5 mg p.o. twice daily)
2. A 600 mg loading dose of Plavix was administered in the catheterization laboratory
3. Will ask case management to become involved to assess cost of therapy
Copy to: Dr. Eric Rivas
--- NOTE | 2025-07-13 15:29 | W.PN.HOSP.TC ---
Today's Communication/Plan
-
Adjust metoprolol to p.o. once daily.
Status post cardiac cath, started on Plavix.
Continue Eliquis.
May discharge in a.m.
Assessment / Plan
Assessment / Plan
Impression:
Patient is an 84y F with PMH significant for prior TIAs, breast cancer on hormonal therapy and hypertension who presents to ED complaining of chest pain. History obtained from patient and her family at the bedside. Patient was feeling fairly
well until about 5PM this evening when she developed sudden onset of chest pain and upper back pain. Pain started shortly after the evening meal. Pain was associated with shortness of breath, nausea and diaphoresis. Patient denies any prior
history of similar symptoms. She presented to the ED for further evaluation and treatment. She was noted to go into A-Flutter in the ED with variable rates. She was started on Cardizem and given SL NTG and her discomfort improved. She entered a
NSR and the Cardizem has since been discontinued.
Troponin elevated, started on heparin drip and admitted to IVU, cardiology consulted.
Underwent cardiac catheter status post stent
echo shows:
1. Left ventricular ejection fraction is normal with an ejection fraction of 67 % by Colon's biplane method of discs.
2. Mild septal hypertrophy measuring 1.1 cm.
Assessment/plan:
NSTEMI
- Admitted to IVU for further evaluation and treatment.
- Patient presents with chest pain, back pain, diaphoresis and nausea.
- Likely due to rapid A-Flutter - ? underlying coronary disease exacerbated by tachyarrhythmia.
- Troponin: 0.035 to 0.688 ---> 3.690
- ASA daily, Statin. Continue IV heparin infusion.
Patient currently chest pain-free
Discussed with cardiology for cardiac cath tomorrow
Patient is allergic to iodine contrast, will need preparation before cardiac cath
07/13
echo shows:
1. Left ventricular ejection fraction is normal with an ejection fraction of 67 % by Colon's biplane method of discs.
2. Mild septal hypertrophy measuring 1.1 cm.
Status post cardiac cath.
Status post stent
New onset Atrial Flutter
- A-Flutter with variable block in the ED on tele and EKG - now back in NSR and off of diltiazem.
- Monitor on telemetry for recurrent arrhythmia.
- Metoprolol BID with holding parameters.
- IV heparin as noted above.
-TSH less than 0.02, free T4 2.58
-Patient stayed in sinus rhythm
07/13
Patient with bradycardia and soft blood pressure.
Switch metoprolol to be once a day
Hypothyroidism
- Continue current T4 supplementation.
- TSH less than 0.02, free T4 2.58 (hyperactive)
- Lower Synthroid dose to 100 mcg daily
Repeat TSH/free T4 in 6 to 8 weeks
Normocytic Anemia
- normal iron studies.
- Follow H&H for any changes / monitor for any evidence of bleeding.
Benign Hypertension
- Stable. Hold ARB acutely following CTA and pending possible cardiac cath.
- Added metoprolol as noted above.
- Adjust med regimen as needed for adequate BP control.
Breast Cancer
- s/p lumpectomy and XRT. Now on hormonal therapy.
- Hold Femara acutely pending completion of CV evaluation.
CODE STATUS: DNR
DVT prophylaxis: Heparin
Diet: cardiac diet
Family communication: Discussed with family at bedside.
Disposition: Status post cardiac cath
Total time spent on today's encounter was 65 minutes which included time spent in counseling the patient/family regarding diagnosis and treatment plan as listed above, goals of care, and symptom management. Case was discussed with nursing staff,
specialists, and care coordinators/case management. All labs and imaging personally reviewed by me. Remainder the time spent in detailed review of previous records, lab data, imaging, and other medical provider documentation.
Anticipated Discharge: Within 24 hours
Subjective/Interval History
-
Date of Service: July 13, 2025
Patient seen and examined at bedside, denies any chest pain or shortness of breath, no abdominal pain, no nausea, no vomiting, no diarrhea or constipation.
Objective Data
-
Labs:
Laboratory Results
07/13/25
09:15
WBC 5.1
Hgb 12.5
Hct 37.2
Plt Count 255 D
APTT 96.9 H
Sodium 138
Potassium 5.0
Chloride 109 H
Carbon Dioxide 21 L
BUN 33 H
Creatinine 1.0
Glucose 134 H
Calcium 8.9
Vital Signs:
Vital Signs
Temp Pulse Resp BP Pulse Ox
97.8 F 52 14 107/62 99
07/13/25 11:26 07/13/25 15:07 07/13/25 15:07 07/13/25 11:27 07/13/25 15:07
I&O
07/12/25 07/13/25 07/14/25
06:59 06:59 06:59
Intake Total 212 / 212
Balance 212 / 212
Physical Exam
-
General: Well Developed, Well Nourished, No Apparent Distress and Comfortable
HEENT: Normocephalic, Atraumatic, Moist Mucous Membranes, No Ptosis, PERRLA and Nose Appears Normal
Respiratory: Clear to Auscultation and Non Labored Respirations
Cardiac: Regular Rhythm and S1/S2
Breast: Deferred by me
GI: Soft, Nontender, Nondistended and Normal Bowel Sounds
Genito-urinary: No Costovertebral Tender
Musculoskeletal: No Clubbing, No Cyanosis and No Edema
Skin: Warm
Neuro: Awake, Alert, Oriented, AO x 3 and No Motor Deficits
Psych: Calm
--- NOTE | 2025-07-13 15:31 | CM ---
Addendum entered by Emma Kilgore RN 07/13/25 16:32:
Patient is related to Dr. Martin neighbor and so he knows the family. Dr. Dupree said the Eliquis is cheap in [place] and they have local physicians in the family so plan is for patient to use the free coupon for Eliquis 2.5 mg BID for 30 days and
then get physical samples from family doctor until she goes back to [place] 09/09/25. Patient can afford Plavix and Toprol XL at local pharmacy. Reviewed free 30 day coupon with patient and family and placed the coupon in the red discharge folder
Original Note:
Pricing on Eliquis, patient does not have health insurance. Pradaxa would cost $55 for a 30 day supply through [facility].
--- NOTE | 2025-07-13 15:49 | PTCARENOTE ---
Patient returned from cardiac cath at 1445. Radial band in place on the right wrist. Right hand cool and dusky, good movement but tender. Right radial pulse palpable with pulse ox of 99%. Right groin dressing is dry and intact. TT to Cristian Dotson [employer] re:
post cath orders for right femoral site, since unable to use right radial site. Notified of right hand being dusky, cool and tender. Ok to begin removing some air now, able to remove 1ml. Patient is aware of post cath activity restrictions,
monitoring VS, family at the bedside. Dr. Torres in to speak with them.
[2025-07-13] MEDS: LIPITOR 40 MG PO (17:39)
--- NOTE | 2025-07-13 17:56 | PTCARENOTE ---
Removed 3ml of air from right radial band, called back into the room by the patient's daughter, radial site was bleeding and air was replaced. RUE elevated on a pillow, radial pulse palpable with pulse ox of 100%, hand cool but pinker. HOB elevated
and patient is waiting for dinner, right groin is dry and intact. Call boyer in reach.
[2025-07-13] MEDS: ELIQUIS 2.5 MG PO (20:34)
--- NOTE | 2025-07-13 21:11 | PTCARENOTE ---
Pt rec'd at change of shift awake,alert with daughter at her bedside. Right radial band eventually weaned off. site bruised with no active bleeding since removing radial band. Right femoral site with drainage noted on drsg. small ooze noted when
drsg removed. pressure held x 5 min with hemostasis achieved. new 4x4 placed at femoral site.
[2025-07-14 05:15] VITALS: BP 111/69
[2025-07-14] MEDS: SYNTHROID 100 MCG PO (05:21)
[2025-07-14 05:44] LABS: Hematocrit 32.6 % (37.0-47.0); Hemoglobin 11.1 g/dL (12.0-16.0); Mean Corp Hgb Conc. 34.0 g/dL (33.0-37.0); Mean Corpuscular Volume 87.4 fL (81.0-99.0); Platelet Count 221 10^3/uL (130-400); Red Cell Dist. Width 12.8 % (11.5-14.5)
[2025-07-14 06:04] LABS: Blood Urea Nitrogen 32 mg/dl (7-17); Calcium 8.2 mg/dl (8.4-10.2); Carbon Dioxide 21 mmol/L (22-30); Chloride 112 mmol/L (98-107); Estimated Creatinine Clearance 27 ml/min; Glucose 114 mg/dl (70-99); Potassium 4.6 mmol/L (3.5-5.1); Sodium 138 mmol/L (135-145); eGFR 55.55
[2025-07-14 07:19] VITALS: BP 94/49
[2025-07-14 07:38] VITALS: BMI 23.3
[2025-07-14] MEDS: ELIQUIS 2.5 MG PO (08:14)
[2025-07-14] MEDS: FEMARA 2.5 MG PO (08:14)
[2025-07-14] MEDS: LOW STRENGTH ASPIRIN 81 MG PO (08:14)
[2025-07-14] MEDS: TOPROL XL 25 MG PO (08:15)
[2025-07-14] MEDS: PROTONIX 40 MG PO (08:15)
[2025-07-14] MEDS: PLAVIX 75 MG PO (08:15)
--- NOTE | 2025-07-14 08:39 | W.PN.CARDCBS ---
Addendum entered and electronically signed by Jin Marvin MD 07/14/25 10:36:
I saw and examined the patient.
The MARKETING SUMMER INTERN or PA's note was reviewed and I agree with the note.
Comment: General: Well developed, well nourished in NAD.
Neck: Supple, no JVD, HJR, carotids +2 B/L, no bruits bilaterally.
Heart: Non displaced PMI, RRR, no murmurs, No S3, S4, no rubs.
Lungs: Clear to auscultation bilaterally, no wheeze, rhonchi, rubs bilaterally,
normal expiratory phase.
Extremities: No clubbing, cyanosis or edema bilaterally.
Neuro: Grossly nonfocal, awake, alert and oriented x3.
Stable cardiology status for discharge. Follow-up has been arranged. Continue aspirin, Plavix, Eliquis for 3 days then stop aspirin and continue Plavix and Eliquis.
Original Note:
Today's Communication / Plan
-
s/p LAD PCI
continue asa, plavix, eliquis 2.5mg BID for 3 days then stop asa and continue plavix, eliquis
toprol 25mg daily
stop OP irbesartan
crestor changed to lipitor
cardiac rehab
OP cardiac follow up arranged
ok for DC to home today
Impression / Plan
-
Primary Industrial Production Manager: none prior to admission, initially seen by Dr. Goodwin
Impression:
CP
NSTEMI s/p LAD PCI 07/13/25
Paroxysmal atypical atrial flutter s/p spontaneous conversion to SR
HTN
HLD
Hypothyroidism
ECHO 07/13/25: EF 67%, mild septal hypertrophy measuring 1.1 cm
Plan:
- Patient presented with chest pain and ruled in for NSTEMI with peak troponin of 10
- Underwent cardiac catheterization 07/13/2025 resulting in LAD PCI
- Right wrist and groin sites soft, clean dry and intact. Wrist site with mild jaren-incisional ecchymoses
- As also had paroxysmal atrial flutter, new diagnosis during this admission, plan for 3 days of aspirin, Plavix, Eliquis 2.5 mg twice daily, then stopping aspirin and continuing Plavix and Eliquis
- LDL 186. Was on Crestor 10 mg every afternoon prior to admission. Was transitioned to Lipitor 40 mg every afternoon. Of note patient does have history of myalgias/joint pain on statins. We did discuss option of transition to PCSK9 inhibitor if
this remains the case
- In sinus bradycardia on review of telemetry overnight. Continue Toprol 25 mg daily.
- Outpatient irbesartan has been stopped due to relative hypotension
- Results of echo as above, reviewed with patient and daughter at bedside 07/14
- Of note, thyroid function tests noted to be consistent with hyperthyroid state which could have contributed to atrial flutter. Synthroid dose was reduced. Will need follow-up TFTs as outpatient per PCP
- if with recurrence of atrial flutter once recovered from NV and thyroid treated, would consider addition of amiodarone
- ok for DC to home today
- OP cardiac follow up arranged
- reviewed activity restrictions/limitations. cardiac rehab
- d/w patient and daughter at bedside. d/w nursing
Progress Note - Industrial Production Manager
Subjective
Date of Service: July 14, 2025
feeling well. eager for DC. no dizziness, CP overnight
Objective
Labs:
07/14/25 05:28
07/14/25 05:28
Labs
Hgb 11.1 g/dL (12.0-16.0) L 07/14/25 05:28
Hct 32.6 % (37.0-47.0) L 07/14/25 05:28
Plt Count 221 10^3/uL (130-400) 07/14/25 05:28
APTT 96.9 Sec (23.4-35.0) H 07/13/25 09:15
Sodium 138 mmol/L (135-145) 07/14/25 05:28
Potassium 4.6 mmol/L (3.5-5.1) 07/14/25 05:28
BUN 32 mg/dl (7-17) H 07/14/25 05:28
Creatinine 1.0 mg/dL (0.6-1.0) 07/14/25 05:28
Glucose 114 mg/dl (70-99) H 07/14/25 05:28
Troponins
07/11/25 07/11/25 07/12/25
18:49 21:33 02:15
Troponin I 0.035 H* 0.688 H* D 3.690 H* D
07/12/25 07/12/25 07/12/25
08:38 10:30 14:26
Troponin I 7.510 H* D Cancelled 10.200 H* D
07/12/25 07/13/25 07/13/25
16:30 00:14 09:15
Troponin I Cancelled 8.480 H* 4.040 H*
Vital Signs and I&O:
Vital Signs
Temp Pulse Resp BP Pulse Ox
98.4 F 60 16 94/59 98
07/14/25 07:20 07/14/25 08:15 07/14/25 07:20 07/14/25 08:15 07/14/25 07:20
Vital Signs
Temp Pulse Resp BP Pulse Ox
98.4 F 60 16 94/59 98
07/14/25 07:20 07/14/25 08:15 07/14/25 07:20 07/14/25 08:15 07/14/25 07:20
Intake & Output
07/12/25 07/13/25 07/14/25 07/15/25
07:59 07:59 07:59 07:59
Intake Total 212 / 212 525 / 525
Balance 212 / 212 525 / 525
Physical Exam
Physical Exam
GEN: No distress, awake, alert, oriented x3
HEENT: supple, anicteric, mmm, eomi
LUNGS: CTA B/L, no wheezes/rales
CV: Reg, S1/S2, no murmur
ABD: soft, BS+, NT/ND
EXT: No cyanosis, clubbing, edema
NEURO: Gross non-focal
SKIN: Warm, pink, dry. No rash. R wrist and groin sites soft, c/d/i, mildly tender to palpation
--- NOTE | 2025-07-14 08:48 | W.PN.HOSP.TC ---
Today's Communication/Plan
-
Discharge planning today
Assessment / Plan
Assessment / Plan
Physical exam:
General: Well Developed, Well Nourished and No Apparent Distress
HEENT: Normocephalic, Atraumatic and Moist Mucous Membranes
Respiratory: Clear to Auscultation; Negative Wheezes, Rales or Rhonchi
Cardiac: Regular Rhythm and S1/S2
GI: Soft, Nontender and Nondistended
Musculoskeletal: No Clubbing, No Cyanosis and No Edema
Neuro: Awake, Alert and Oriented, No neuro deficits
Psych: Calm
Impression:
Patient is an 84y F with PMH significant for prior TIAs, breast cancer on hormonal therapy and hypertension who presents to ED complaining of chest pain. History obtained from patient and her family at the bedside. Patient was feeling fairly
well until about 5PM this evening when she developed sudden onset of chest pain and upper back pain. Pain started shortly after the evening meal. Pain was associated with shortness of breath, nausea and diaphoresis. Patient denies any prior
history of similar symptoms. She presented to the ED for further evaluation and treatment. She was noted to go into A-Flutter in the ED with variable rates. She was started on Cardizem and given SL NTG and her discomfort improved. She entered a
NSR and the Cardizem has since been discontinued.
Troponin elevated, started on heparin drip and admitted to IVU, cardiology consulted.
Underwent cardiac catheter status post stent
echo shows:
1. Left ventricular ejection fraction is normal with an ejection fraction of 67 % by Colon's biplane method of discs.
2. Mild septal hypertrophy measuring 1.1 cm.
Assessment/plan:
NSTEMI
- Admitted to IVU for further evaluation and treatment.
- Patient presents with chest pain, back pain, diaphoresis and nausea.
- Likely due to rapid A-Flutter - ? underlying coronary disease exacerbated by tachyarrhythmia.
- Troponin: 0.035 to 0.688 ---> 3.690
- ASA daily, Statin. Continue IV heparin infusion.
Patient currently chest pain-free
Discussed with cardiology for cardiac cath tomorrow
Patient is allergic to iodine contrast, will need preparation before cardiac cath
07/13
echo shows:
1. Left ventricular ejection fraction is normal with an ejection fraction of 67 % by Colon's biplane method of discs.
2. Mild septal hypertrophy measuring 1.1 cm.
Status post cardiac cath.
Status post stent
New onset Atrial Flutter
- A-Flutter with variable block in the ED on tele and EKG - now back in NSR and off of diltiazem.
- Monitor on telemetry for recurrent arrhythmia.
- Metoprolol BID with holding parameters.
- IV heparin as noted above.
-TSH less than 0.02, free T4 2.58
-Patient stayed in sinus rhythm
07/13
Patient with bradycardia and soft blood pressure.
Switch metoprolol to be once a day
07/14
on B-Dennis and Eliquis-NSR
Cardio cleared her for d/c
Discussed with daughter at bedside
Hypothyroidism
- Continue current T4 supplementation.
- TSH less than 0.02, free T4 2.58 (hyperactive)
- Lower Synthroid dose to 100 mcg daily
Repeat TSH/free T4 in 6 to 8 weeks
Normocytic Anemia
- normal iron studies.
- Follow H&H for any changes / monitor for any evidence of bleeding.
Benign Hypertension
- Stable. Hold ARB acutely following CTA and pending possible cardiac cath.
- Added metoprolol as noted above.
- Adjust med regimen as needed for adequate BP control.
Breast Cancer
- s/p lumpectomy and XRT. Now on hormonal therapy.
- Hold Femara acutely pending completion of CV evaluation.
CODE STATUS: DNR
DVT prophylaxis: Heparin
Diet: cardiac diet
Family communication: Discussed with family at bedside.
Disposition: Status post cardiac cath
Anticipated Discharge: Today
Subjective/Interval History
-
Date of Service: July 14, 2025
Patient denies any chest pain or shortness of breath. She remains in normal sinus rhythm this morning.
Objective Data
-
Labs:
Laboratory Results
07/14/25
05:28
WBC 10.0
Hgb 11.1 L
Hct 32.6 L
Plt Count 221
Sodium 138
Potassium 4.6
Chloride 112 H
Carbon Dioxide 21 L
BUN 32 H
Creatinine 1.0
Glucose 114 H
Calcium 8.2 L
Vital Signs:
Vital Signs
Temp Pulse Resp BP Pulse Ox
98.4 F 60 16 94/59 98
07/14/25 07:20 07/14/25 08:15 07/14/25 07:20 07/14/25 08:15 07/14/25 07:20
I&O
07/13/25 07/14/25 07/15/25
06:59 06:59 06:59
Intake Total 212 / 212 525 / 525
Balance 212 / 212 525 / 525
[2025-07-14 09:07] VITALS: BP 109/65
[2025-07-14 09:13] VITALS: BMI 23.3
[2025-07-14 09:30] VITALS: BP 109/65; PULSE 55; O2SAT 99
[2025-07-14 09:45] VITALS: BP 109/65; PULSE 55; O2SAT 100
--- NOTE | 2025-07-14 09:51 | PTCARENOTE ---
received patient this am, pleasant , friendly, daughter at bedside. monitor shows NSR, VSS. right radial dsg. D/I, distal pulse palpable, right groin tender to touch, no hematoma, no ecchymosis, distal pulse weak but palpable. patient is hoping to
be discharged to home today.
--- NOTE | 2025-07-14 10:26 | W.DCSUMMARY ---
Discharge Summary
Discharge Data
Date of Admission: 07/12/25
Date of Discharge: 07/14/25
Total time spent discharging patient (in min): 35
-
Pending Results: No
Hospital Course
Patient 84 years old female who has come to [place] visiting from [place] with history of hypertension, TIAs, breast cancer presented to the hospital with chest pain and elevated troponin and found to be in atrial flutter as well. Patient was admitted to
the hospital and started on ACS protocol. Cardiology consulted. Patient converted to normal sinus rhythm spontaneously. She underwent cardiac catheterization and required drug-eluting stent in LAD. Patient was started on dual antiplatelet
therapy and anticoagulation with Eliquis. She was recommended triple therapy only for 3 more days to complete 1 week then continue with 1 antiplatelet Plavix and 1 anticoagulant Eliquis. She was also started on low-dose beta-blockers. Her thyroid
function was indicative of hyper function therefore thyroid doses were reduced. Postprocedure patient has been doing well. Cardiology has cleared her for discharge. She will be discharged in medically stable condition today.
Discharge duration: 35 minutes
Discharge Plan
-
Patient Disposition: Home (Routine Discharge)
Discharge Diagnosis/Procedures: Non ST Elavation Myocardial Infarction, status post angioplasty and stent to Left Anterior Descending artery. Atrial flutter. Anemia. Hypothyroidism. Hyperlipidemia.
Diet: Low Cholesterol and Low Sodium
Activity: As tolerated
Driving Restrictions: No driving for 24 hours
Bathing Restrictions: OK to Shower
Blood Work: Outpatient cardiology follow-up with CBC and BMP and TFT in 1 to 2 weeks.
Other Services: Cardiac Rehab
Stand Alone Forms: DC Instructions- Cath/EP Lab
Referrals:
Primary care provider [Other] - in less than 1 week
Mami Zelaya PA-C [Specified Professional Personl, Cardiology] - 08/12/25 10:20 am
UNKNOWN,NO INTERVIEW [Family Provider]
Additional Discharge Medication Instructions: STOP rosuvastatin- you will take atorvastatin (Lipitor) instead. STOP irbesartan
Continue aspirin, plavix and eliquis for 3 days then stop aspirin as of 07/17/25 and continue plavix and eliquis.
Prescriptions:
New
atorvastatin 40 mg Tablet
40 mg PO QPM 30 Days Qty: 30 0RF
clopidogrel 75 mg Tablet
75 mg PO DAILY 30 Days Qty: 30 0RF
levothyroxine 100 mcg Tablet
100 mcg PO DAILY @ 0600 30 Days Qty: 30 0RF
nitroglycerin 0.4 mg Tablet, Sublingual
0.4 mg sublingual [id number] PRN (Reason: Chest Pain) 10 Days Qty: 14 0RF
aspirin 81 mg Tablet,Chewable
81 mg PO DAILY 3 Days Qty: 3 0RF
metoprolol succinate 25 mg Tablet Extended Release 24 Hr
25 mg PO DAILY 30 Days Qty: 30 0RF
Eliquis 2.5 mg Tablet
2.5 mg PO BID 30 Days Qty: 60 0RF
Continued
acetaminophen 500 mg Tablet
500 mg PO Q6H PRN (Reason: pain)
letrozole [Femara] 2.5 mg Tablet
2.5 mg PO DAILY
B-12 Plus
1,200 mcg QDAY
Discontinued
levothyroxine 100 MCG tablet
125 mcg PO DAILY
irbesartan 150 mg Tablet
75 mg PO DAILY
Rx Instructions:
1/2 tab in am (75 mg)
rosuvastatin [Crestor] 10 mg Tablet
10 mg PO DAILY
aspirin 81 mg Tablet
81 mg PO DAILY
Discharge Orders:
Discharge Patient (As Directed); Ordered 07/14/25
Ordered By: Galo Lee
Care Plan Goals
Care Plan Goals:
Problem: Readiness for enhanced knowledge related to diagnosis and treatment plan
Goal: Understand your diagnosis and treatment plan needs, including medications if applicable.
Instructions: Know your diagnosis, underlying causes and treatment plan options, including medications if applicable. Consult with your health care team to learn about your diagnosis and treatment plan, including medications if applicable.
Discharge Date and Time
Discharge Date/Time: 07/14/25 11:34
Print Language: FINNISH
--- NOTE | 2025-07-14 10:31 | PTCARENOTE ---
patient and family refused flu vaccine at this time.
[2025-07-14 10:43] VITALS: BP 105/65
--- NOTE | 2025-07-14 11:27 | PTCARENOTE ---
D/C instructions given to patient and daughters, both verbalizes understanding. prescriptions sent to [facility], patient is from [place], case management aware. telemetry D/C'd, INT D/C'd, personal belongings packed and sent home with patient. D/C to home
via wc accompanied by staff.
== END 2025-07-14 11:34 | disposition home or self-care (01) | DRG 322 ==
LOC: IVU 03:17
PROVIDERS: General Practice; Internal Medicine Interventional Cardiology; Nurse Practitioner; ADMITTING PHYSICIAN Hospitalist; ATTENDING PHYSICIAN Hospitalist; CONSULT PHYSICIAN Internal Medicine Cardiovascular Disease; EMERGENCY PHYSICIAN Student in an Organized Health Care Education/Training Program
PROC: B2111ZZ Fluoroscopy of Multiple Coronary Arteries using Low Osmolar Contrast (ICD-10-PCS; 2025-07-13)
PROC: 4A023N7 Measurement of Cardiac Sampling and Pressure, Left Heart, Percutaneous Approach (ICD-10-PCS; 2025-07-13)
PROC: B2151ZZ Fluoroscopy of Left Heart using Low Osmolar Contrast (ICD-10-PCS; 2025-07-13)
PROC: 027034Z Dilation of Coronary Artery, One Artery with Drug-eluting Intraluminal Device, Percutaneous Approach (ICD-10-PCS; 2025-07-13)
DX: I21.4 Non-ST elevation (NSTEMI) myocardial infarction (principal); I48.4 Atypical atrial flutter; I25.10 Atherosclerotic heart disease of native coronary artery without angina pectoris; D64.9 Anemia, unspecified; E03.9 Hypothyroidism, unspecified; I10 Essential (primary) hypertension; Z85.3 Personal history of malignant neoplasm of breast; Z88.0 Allergy status to penicillin; Z88.2 Allergy status to sulfonamides; Z79.890 Hormone replacement therapy; Z90.10 Acquired absence of unspecified breast and nipple; E78.00 Pure hypercholesterolemia, unspecified; Z86.73 Personal history of transient ischemic attack (TIA), and cerebral infarction without residual deficits; Z66 Do not resuscitate; Z79.811 Long term (current) use of aromatase inhibitors; Z79.82 Long term (current) use of aspirin; Z79.899 Other long term (current) drug therapy
CPT/HCPCS: 71046; 71275; 80048; 80053; 80061; 82607; 82728; 82746; 83540; 83550; 84439; 84443; 84484; 85025; 85027; 85347; 85379; 85730; 92978; 93005; 93306; 93458; 96365; 96366; 96367; 96375; 97161; 97166; 99152; 99153; 99285; C1725; C1753; C1769; C1874; C1894; C9600; Q9967

== ENCOUNTER 2025-08-18 11:00 | Emergency (ER) | payer MEDICAID, SELFPAY ==
--- NOTE | 2025-08-18 12:08 | EDRN ---
Bhavana Mitchell PA in room w/ pt at this time.
[2025-08-18 12:24] VITALS: BP 108/84
[2025-08-18 12:27] VITALS: BMI 23.5
--- NOTE | 2025-08-18 12:31 | EDRN ---
Pt has had pain in L ear and ear since May and much worse today and also w/ L neck pain today. Pain is worse w/ palp. Pt had heart palpataions today as well.
[2025-08-18 13:00] VITALS: BP 123/80
[2025-08-18 13:10] LABS: Hematocrit 39.4 % (37.0-47.0); Hemoglobin 13.6 g/dL (12.0-16.0); Mean Corp Hgb Conc. 34.5 g/dL (33.0-37.0); Mean Corpuscular Volume 86.8 fL (81.0-99.0); Platelet Count 239 10^3/uL (130-400); Red Cell Dist. Width 13.2 % (11.5-14.5)
[2025-08-18 13:21] LABS: ALT (SGPT) 19 U/L (0-35); AST (SGOT) 28 U/L (14-36); Albumin 4.6 g/dl (3.5-5.0); Alkaline Phosphatase 80 U/L (38-126); Blood Urea Nitrogen 17 mg/dl (7-17); Calcium 9.7 mg/dl (8.4-10.2); Carbon Dioxide 24 mmol/L (22-30); Chloride 106 mmol/L (98-107); Estimated Creatinine Clearance 30 ml/min; Glucose 89 mg/dl (70-99); Potassium 4.6 mmol/L (3.5-5.1); Sodium 136 mmol/L (135-145); Total Protein 8.0 g/dl (6.3-8.2); eGFR > 60.00
[2025-08-18 13:25] LABS: C-Reactive Protein 11.00 mg/L (0.0-10.00)
[2025-08-18 13:32] LABS: Troponin I 0.013 ng/ml
[2025-08-18 14:01] VITALS: BP 102/78
[2025-08-18] MEDS: TYLENOL 1000 MG PO (14:10)
--- NOTE | 2025-08-18 14:12 | EDRN ---
Bhavana Mitchell PA in to speak w/ pt at this time.
--- NOTE | 2025-08-18 14:35 | ED.GENMED ---
History of Present Illness
General
Chief Complaint: Jaw Pain
Time Seen by Provider: 08/18/25 12:06
History of Present Illness
History of Present Illness:
84-year-old female presents the emergency department for evaluation of left jaw pain has been ongoing for the past several days. She felt palpitations when she woke up this morning thus this prompted her to come emergency department. She had a
recent NSTEMI and a stent was placed in the LAD last month. I spoke with her nephew who is also her primary care physician, apparently this jaw pain is not new and he has previously treated her with low-dose prednisone with some success. Patient
denies any chest pain or dyspnea and has no symptoms that are comparable to the prior NSTEMI. Currently denies any palpitations. Regards to the jaw pain she reports it is exquisite pain to move the jaw, denies any recent jaw claudication,
headache, or vision changes
Past History
Past History
ED Past Medical History: HTN, Hypercholesterolemia and Other (TIA)
Social History
Tobacco: Non-smoker
Alcohol: None
Drug: None
Living: with family
Review of Systems
Review of Systems
Allergies reviewed?: Yes
All Other Systems: ROS reviewed and negative except as documented in HPI and ROS
Phy Exam
Physical Exam
Physical Exam:
GEN: Well appearing, NAD, WDWN
HEENT: Oral mucosa moist, no scleral icterus, no nasal congestion, no temporal artery tenderness, moderate tenderness to the left TMJ region, no obvious dental abscess or gingival erythema
Cardiac: Irregular, controlled rate, no murmur
Lung: No respiratory distress, no tachypnea
MSK: No gross deformity or injuries
Skin: Good color, no pallor or jaundice, no rashes
Neuro: AO x3; CN II-XII grossly intact. BUE strength 5/5 in all hicks, sensation intact and symmetric. BLE strength 5/5 in all hicks, sensation intact and symmetric
Psych: Calm, cooperative
Course
Orders/Labs/Results
Orders:
Orders
08/18/25 11:13
Electrocardiogram (*1) Urgent
Reason for Study: Other
Other Reason for Exam: jaw pain, palpatations.
EKG- Treatment ONCE
08/18/25 12:46
CRP [C-Reactive Protein] Urgent
Complete Blood Count/No Diff Urgent
Comprehensive Metabolic Panel Urgent
ESR [Erythrocyte Sed Rate] Urgent
Troponin I Urgent
08/18/25 13:37
Acetaminophen [Tylenol] 1,000 mg PO NOW STA
Abnormal Lab Results
08/18/25
12:46
C-Reactive Protein 11.00 H mg/L
(0.0-10.00)
08/18/25 12:46
08/18/25 12:46
Vital Signs
Initial and Last Documented VS:
Initial Vital Signs
Temp Pulse Resp Pulse Ox
97.5 F 88 18 97
08/18/25 11:10 08/18/25 11:10 08/18/25 11:10 08/18/25 11:10
Last Documented Vital Signs
Temp Pulse Resp BP Pulse Ox
97.5 F 58 16 102/78 98
08/18/25 11:10 08/18/25 14:45 08/18/25 14:45 08/18/25 14:01 08/18/25 14:45
MDM/Problems Addressed
MDM/Problems Addressed:
Patient has a reassuring workup with negative troponin and negative inflammatory markers ruling out giant cell arteritis. Her pain is clearly reproducible with jaw movement and is highly suspicious for TMJ syndrome. She arrived in a rate
controlled atrial fibrillation however after a period of time she converted spontaneously to NSR. She was ambulated in the ED with no tachycardia or dyspnea. She is suitable for outpatient management. I discussed the case with her PCP who is
amenable to treatment with a low-dose prednisone
*Pulse Oximetry
SaO2: 100
Oxygen Mode of Delivery: Room air
Patient hypoxic: no
*Critical Care Note
Total Time (30-74mins, 75-104mins- exclusive of procedures): Not Applicable
ED Attending Note
-
Portions of this chart may have been created with voice recognition software.� Occasional wrong word or��sound alike� substitutions may have occurred due to the inherent limitations of voice recognition software.
Discharge Plan
Departure
Patient Disposition: Home (Routine Discharge)
Date of Disposition: 08/18/25
Time of Disposition: 14:36
Patient with high blood pressure during this ER visit?: No
Discharge Problem:
TMJ arthralgia
Instructions: Temporomandibular Joint (TMJ) Disorders (DC)
Prescriptions:
New
prednisone 5 mg tablet
5 mg PO DAILY Qty: 15 0RF
Rx Instructions:
10mg PO daily x 5d, then 5mg PO qd x 5d
No Action
acetaminophen 500 mg Tablet
500 mg PO Q6H PRN (Reason: pain)
letrozole [Femara] 2.5 mg Tablet
2.5 mg PO DAILY
B-12 Plus
1,200 mcg QDAY
atorvastatin 40 mg Tablet
40 mg PO QPM 30 Days Qty: 30 0RF
clopidogrel 75 mg Tablet
75 mg PO DAILY 30 Days Qty: 30 0RF
nitroglycerin 0.4 mg Tablet, Sublingual
0.4 mg sublingual [id number] PRN (Reason: Chest Pain) 10 Days Qty: 14 0RF
aspirin 81 mg Tablet,Chewable
81 mg PO DAILY 3 Days Qty: 3 0RF
metoprolol succinate 25 mg Tablet Extended Release 24 Hr
25 mg PO DAILY 30 Days Qty: 30 0RF
Eliquis 2.5 mg Tablet
2.5 mg PO BID 30 Days Qty: 60 0RF
levothyroxine 100 mcg capsule
100 mcg PO DAILY Qty: 90 0RF
Referrals:
Martin Lopes MD [Family Provider, Family Practice]
Interventions
Interventions:
*Risk Screen - Suicide Last Done: 08/18/25 11:10
*General Assessment Last Done: 08/18/25 11:10
*Neglect/Abuse Screening Last Done: 08/18/25 11:10
*ED- Fall Risk Assessment Last Done: 08/18/25 12:27
*ED COVID-19 Vaccine History Last Done: 08/18/25 12:27
*ED Influenza Vaccine History Last Done: 08/18/25 12:27
*Nursing Disposition Last Done: 08/18/25 14:55
ED-EENT Assessment Last Done: 08/18/25 12:29
ED- Cardiac Assessment Last Done: 08/18/25 13:45
Discharge Date and Time
Discharge Date/Time: 08/18/25 14:55
Print Language: [id number]
== END 2025-08-18 14:55 | disposition home or self-care (01) ==
LOC: EMR 11:00
PROVIDERS: Physician Assistant; EMERGENCY PHYSICIAN Student in an Organized Health Care Education/Training Program; FAMILY PHYSICIAN Family Medicine
DX: M26.622 Arthralgia of left temporomandibular joint (principal); I48.91 Unspecified atrial fibrillation; I10 Essential (primary) hypertension; E78.00 Pure hypercholesterolemia, unspecified; I25.2 Old myocardial infarction; Z79.02 Long term (current) use of antithrombotics/antiplatelets; Z79.82 Long term (current) use of aspirin; Z95.5 Presence of coronary angioplasty implant and graft; Z86.73 Personal history of transient ischemic attack (TIA), and cerebral infarction without residual deficits
CPT/HCPCS: 99284; 80053; 84484; 85027; 85652; 86140; 93005